=== PATIENT | female | born 1945 | race Caucasian/White ===

== ENCOUNTER → 2019-04-20 | Outpatient (CLI) | payer MEDICARE, BC | LOC: COL.RAD 07:56 | DX: K21.9 Gastro-esophageal reflux disease without esophagitis (principal) ==

== ENCOUNTER → 2022-06-13 | Outpatient (CLI) | payer MEDICARE, BC | LOC: COL.RAD 08:33 | DX: K80.20 Calculus of gallbladder without cholecystitis without obstruction (principal); N28.1 Cyst of kidney, acquired ==

== ENCOUNTER 2022-07-25 07:49 | Day surgery (SDC) | payer MEDICARE, BC ==
[~2022-07-25] VITALS: Ht 167.6 cm; Wt 86.5 kg
[2022-07-25] MEDS ORDERED: DIOVAN HCT 12.51 TA2 PO (08:49)
[2022-07-25] MEDS ORDERED: LIPITOR 10MG10 MG PO (08:49)
[2022-07-25] MEDS ORDERED: PROTONIX 40MG T40 MG PO (08:50)
[2022-07-25] MEDS ORDERED: LEXAPRO20 MG PO (08:50)
[2022-07-25] MEDS ORDERED: ALEVE 220MG220 MG PO (08:51)
[2022-07-25] MEDS ORDERED: B-121000 MCG PO (08:52)
[2022-07-25 09:03] VITALS: BP 135/82; PULSE 74; TEMP 98.1
[2022-07-25] MEDS ORDERED: NORCO 325 MG-51 TAB PO (11:22)
[2022-07-25 11:55] VITALS: BP 127/59; PULSE 72; TEMP 97.1
[2022-07-25 12:10] VITALS: BP 132/64; PULSE 72
[2022-07-25 12:25] VITALS: BP 126/61; PULSE 68
--- NOTE | 2022-07-25 12:45 | NUR ---
1155 RETURNS TO ROOM 7 PER CART. AWAKE, ALERT. RESP UNLABORED. HOB [id number] DEGREES. VITAL SIGNS OBTAINED. ABD SOFT. INCISION X 4 SITES INTACT. NO REDNESS OR DRAINAGE OBSERVED. REPORTS MILD MID BACK DISCOMFORT. DENIES NEED FOR PAIN MED. REPOSITIONED ON CART WITH MINIMAL ASSISTANCE. CALL LIGHT AT SIDE. FRIEND IN ROOM 1210 TOLERATES PO WATER AND COFFE WITHOUT NAUSEA. 1215 DISCHARGE INSTRUCTIONS REVIEWED. PATIENT VERBALIZES UNDERSTANDING. COPY PROVIDED IN DISCHARGE FOLDER 1230 EXPRESSES COMFORT. RESP UNLABORED. VITAL SIGNS STABLE. NO ABD/INCISION CHANGE 1235 SITS ON EDGE OF CART, DRESSES SELF. TOLERATES MOVEMENT/ACTIVITY WELL.
== END 2022-07-25 12:45 | disposition home or self-care (01) ==
LOC: SDCO 07:49
DX: K80.10 Calculus of gallbladder with chronic cholecystitis without obstruction (principal)
CPT/HCPCS: J0690; J1100; J2370; J2405; J2704; J3010; J7120